=== PATIENT | female | born 1955 | race African-American/Black ===

== ENCOUNTER 2020-02-29 15:07 | Emergency (ER) | payer MEDICARE ==
[~2020-02-29] VITALS: Ht 160 cm; Wt 84.5 kg
[2020-02-29 15:20] VITALS: BP 150/76
[2020-02-29] MEDS ORDERED: AMOXICILLIN 250 MG CAPSULE PO ONE (15:30)
[2020-02-29] MEDS ORDERED: AMOX500C PO (15:31)
--- NOTE | 2020-02-29 15:31 | PHYS DOC ---
General Adult EDM: Chief Complaint: DENTAL PROBLEM HPI: HPI: History obtained from patient. Patient is a 64-year-old female who presents with chief complaint of left upper molar dental pain. Patient states he has had intermittent dental pain in that area for the past 4 months. She states she was supposed to see a dentist but cannot afford the cost of anesthesia for dental removal. She states that the pain seemed to return yesterday evening. Denies any new dental trauma. Denies any recent dental procedures. Denies any recent antibiotics. She is currently taking hydrocodone for recent left Achilles tendon surgery. She states this has not helped with her pain. Denies fevers. Denies changes to her voice. Denies pain with swallowing. Denies any trismus. Denies drainage in the mouth. No other complaints. Review of Systems: Review of Systems: Constitutional: Denies fever or chills Eyes: Denies change in visual acuity HENT: Positive for dental pain Respiratory: Denies cough or shortness of breath Cardiovascular: Denies chest pain or edema GI: Denies abdominal pain, nausea, vomiting, bloody stools or diarrhea : Denies dysuria Musculoskeletal: Denies back pain or joint pain Integument: Denies rash Neurologic: Denies headache, focal weakness or sensory changes Endocrine: Denies polyuria or polydipsia Lymphatic: Denies swollen glands Psychiatric: Denies depression or anxiety Allergies: Allergies: Allergies Coded Allergies Type Severity Reaction Last Updated Verified aspirin Allergy Unknown 02/29/20 Yes Uncoded Allergies Type Severity Reaction Last Updated Verified IVP DYE Allergy Unknown 02/29/20 Physical Exam: PE: Constitutional: Well developed, well nourished, no acute distress, non-toxic appearance. [] HENT: Normocephalic, atraumatic, bilateral external ears normal, oropharynx moist, no oral exudates, nose normal. [] ENT: Numerous dental caries without overt evidence of periapical abscess formation. Tenderness to percussion superior to tooth 14. Tolerates saliva. No trismus. No erythema or exudate of the oropharynx. No airway obstruction or deep space infection. Normal phonation. Uvula midline. NECK: No midline cervical tenderness. Anterior cervical adenopathy [] present. No tenderness of carotid sheath bilaterally. No submental tenderness, swelling, or erythema. Neck supple with full ROM and without signs of meni ngismus. Eyes: PERRLA, EOMI, conjunctiva normal, no discharge. [] Neck: Normal range of motion, no tenderness, supple, no stridor. [] Cardiovascular:Heart rate regular rhythm, no murmur [] Lungs & Thorax: Bilateral breath sounds clear to auscultation [] Abdomen: soft, no tenderness, no masses, no pulsatile masses. [] Skin: Warm, dry, no erythema, no rash. [] Back: No tenderness, no CVA tenderness. [] Extremities: No tenderness, no cyanosis, no clubbing, ROM intact, no edema. [] Neurologic: Alert and oriented X 3, normal motor function, normal sensory function, no focal deficits noted. [] Psychologic: Affect normal, judgement normal, mood normal. [] EKG: EKG: [] Radiology/Procedures: Radiology/Procedures: [] Heart Score: Risk Factors: Risk Factors: DM, Current or recent (<one month) smoker, HTN, HLP, family history of CAD, obesity. Risk Scores: Score 0 - 3: 2.5% MACE over next 6 weeks - Discharge Home Score 4 - 6: 20.3% MACE over next 6 weeks - Admit for Clinical Observation Score 7 - 10: 72.7% MACE over next 6 weeks - Early Invasive Strategies Course & Med Decision Making: Course & Med Decision Making Pertinent Labs and Imaging studies reviewed. (See chart for details) [] Patient is a 64-year-old female who presents with a chief complaint of acute on chronic dental pain. No obvious signs of deep space infection on examination. Normal phonation. No trismus noted. No tonsillar swelling or exudate appreciated. No cervical lymphadenopathy appreciated. On exam no obvious drainable fluid collection appreciated. Given the patient's already taking hydrocodone that her not feel further opiates are indicated. She does have multiple drug allergies. I did offer to perform dental nerve block. She declined stating that she does not like needles. I do feel is reasonable to give her a short course of amoxicillin. First dose given in the emergency department. Encouraged to use her hydrocodone at home. She will be given referral to dentist. Return precautions discussed and understood. Stable for discharge home. Williams Disclaimer: Williams Disclaimer: This electronic medical record was generated, in whole or in part, using a voice recognition dictation system. Departure Departure: Impression: Primary Impression: Pain, dental Disposition: 01 DC HOME SELF CARE/HOMELESS Condition: STABLE Referrals: PCP,UNKNOWN (PCP) RACHEL URIBE MD Patient Instructions: Dental Caries Additional Instructions: Please follow-up with your primary care physician in the next 2 to 3 days. Please follow-up with a dentist next week. Scripts Amoxicillin (AMOXICILLIN) 500 Mg Capsule 1 CAP PO BID for infection for 10 Days, #20 CAP Prov: EUSEBIA WILCOX DO 02/29/20 EUSEBIA WILCOX DO Feb 29, 2020 15:31
== END 2020-02-29 15:55 | disposition home or self-care (01) ==
LOC: ER 15:07
DX: K08.89 Other specified disorders of teeth and supporting structures (principal); Z88.8 Allergy status to other drugs, medicaments and biological substances
CPT/HCPCS: 99283